=== PATIENT | female | born 1960 | race Caucasian/White ===

== ENCOUNTER → 2016-08-11 | Day surgery (SDC) | payer BC | LOC: MSO 06:56 | DX: D12.3 Benign neoplasm of transverse colon (principal); K92.1 Melena; D12.2 Benign neoplasm of ascending colon; D12.5 Benign neoplasm of sigmoid colon; D12.7 Benign neoplasm of rectosigmoid junction; I10 Essential (primary) hypertension | CPT/HCPCS: 00810; J7030 ==

== ENCOUNTER → 2017-06-12 | Outpatient (CLI) | payer BC | LOC: RAD 16:54 | DX: M17.12 Unilateral primary osteoarthritis, left knee (principal) ==

== ENCOUNTER → 2018-01-12 | Outpatient (CLI) | payer BC ==
[2018-01-12 11:05] LABS: EOS # 0.1 (0.04-0.40); EOS % 0.7 % (1.0-5.0); HEMATOCRIT 41.7 % (37.0-47.0); MEAN CELL VOLUME 89 fl (78-100); MEAN CORPUSCULAR HEMOGLOBIN 30 pg (27-31); MEAN CORPUSCULAR HGB CONC 34 g/dL (33-37); MEAN PLATELET VOLUME 9.6 fl (7.4-10.4); MONO # 0.5 (0.20-0.80); NEU # 4.8 (1.40-6.50); PLATELET COUNT 277 K/mm3 (130-400); RED BLOOD COUNT 4.69 M/mm3 (4.10-5.30); RED CELL DISTRIBUTION WIDTH 13.2 % (11.5-14.5); WHITE BLOOD COUNT 7.4 K/mm3 (4.8-10.8)
[2018-01-12 12:09] LABS: ALBUMIN 4.6 g/dL (3.5-5.0); CALCIUM 10.5 mg/dL (8.4-10.2); POTASSIUM 4.2 mmol/L (3.6-5.0); TOTAL BILIRUBIN 0.7 mg/dL (0.2-1.3); TOTAL PROTEIN 8.5 g/dL (6.3-8.2)
[2018-01-12 12:18] LABS: ERYTHROCYTE SEDIMENTATION RATE 22 mm/hr (0-30); URINE APPEARANCE HAZY; URINE BILIRUBIN NEGATIVE (NEGATIVE); URINE BLOOD NEGATIVE (NEGATIVE); URINE COLOR YELLOW; URINE GLUCOSE NEGATIVE (NEGATIVE); URINE KETONE NEGATIVE (NEGATIVE); URINE LEUKOCYTE ESTERASE 1+ (NEGATIVE); URINE MUCUS PRESENT (NOT PRESENT); URINE NITRATE NEGATIVE (NEGATIVE); URINE PROTEIN(semi-quant) NEGATIVE (NEGATIVE); URINE UROBILINOGEN NORMAL (NORMAL)
[2018-01-12 23:18] LABS: CREATININE OTHER SOURCE 49 mg/dL (())
== END ==
LOC: RAD 10:42
PROVIDERS: Internal Medicine
DX: M17.11 Unilateral primary osteoarthritis, right knee (principal)

== ENCOUNTER → 2018-01-15 | Outpatient (CLI) | payer BC | LOC: LAB 17:41 | DX: Z00.00 Encounter for general adult medical examination without abnormal findings (principal) ==

== ENCOUNTER → 2018-03-16 | Outpatient (CLI) | payer BC | LOC: MAMMO 12:50 | DX: Z12.31 Encounter for screening mammogram for malignant neoplasm of breast (principal) ==

== ENCOUNTER → 2018-11-11 | Outpatient (CLI) | payer BC | LOC: RAD 08:08 | DX: M17.0 Bilateral primary osteoarthritis of knee (principal); M25.461 Effusion, right knee ==

== ENCOUNTER → 2018-12-13 | Outpatient (CLI) | payer BC ==
[~2018-12-13] MED LIST: ASPIR LOW81 MG PO; BYSTOLIC5 MG PO; GLUCOSAMINE CH1 EAC5 PO; ONE DAILY WOME1 EACH PO; ULTRAM50 M1 PO
== END ==
LOC: PT 14:45
DX: M17.0 Bilateral primary osteoarthritis of knee (principal)

== ENCOUNTER 2019-02-17 13:00 | Outpatient (RCR) | payer BC ==
[2018-12-16 12:21] VITALS: BP 156/84
== END 2019-03-31 | disposition still patient (30) ==
LOC: PT
DX: M17.12 Unilateral primary osteoarthritis, left knee (principal); Z98.890 Other specified postprocedural states

== ENCOUNTER → 2019-10-28 | Outpatient (CLI) | payer BC ==
[2018-12-16 12:21] VITALS: BP 156/84
[2019-10-28 11:55] LABS: POTASSIUM 4.4 mmol/L (3.5-5.1)
[2019-10-28 11:56] LABS: ALBUMIN 4.5 g/dL (3.5-5.0); EOS # 0.1 (0.04-0.40); EOS % 0.8 % (1.0-5.0); HEMATOCRIT 41.6 % (37.0-47.0); HEMOGLOBIN 13.6 g/dL (12.5-16.0); LYMPH# 1.9 (1.50-4.00); MEAN CELL VOLUME 90 fl (78-100); MEAN CORPUSCULAR HEMOGLOBIN 29 pg (27-31); MEAN CORPUSCULAR HGB CONC 33 g/dL (33-37); MEAN PLATELET VOLUME 9.4 fl (7.4-10.4); MONO # 0.6 (0.20-0.80); PLATELET COUNT 279 K/mm3 (130-400); RED BLOOD COUNT 4.63 M/mm3 (4.10-5.30); WHITE BLOOD COUNT 7.5 K/mm3 (4.8-10.8)
[2019-10-28 11:57] LABS: CALCIUM 9.7 mg/dL (8.3-10.5)
[2019-10-28 11:58] LABS: TOTAL PROTEIN 7.8 g/dL (6.4-8.3)
[2019-10-28 12:00] LABS: TOTAL BILIRUBIN 0.6 mg/dL (0.2-1.2)
[2019-10-28 12:05] LABS: MAGNESIUM 2.09 mg/dL (1.60-2.60)
[2019-10-28 12:21] LABS: URINE APPEARANCE HAZY; URINE BILIRUBIN NEGATIVE (NEGATIVE); URINE BLOOD TRACE (NEGATIVE); URINE COLOR YELLOW; URINE GLUCOSE NEGATIVE (NEGATIVE); URINE KETONE 1+ (NEGATIVE); URINE LEUKOCYTE ESTERASE NEGATIVE (NEGATIVE); URINE NITRATE NEGATIVE (NEGATIVE); URINE PROTEIN(semi-quant) TRACE mg/dL (NEGATIVE); URINE UROBILINOGEN NORMAL (NORMAL)
== END ==
LOC: LAB 10:45 → AMSURD 10:45 → RAD 10:45
PROVIDERS: Internal Medicine
DX: Z01.811 Encounter for preprocedural respiratory examination (principal)

== ENCOUNTER → 2020-05-01 | Outpatient (CLI) | payer BC ==
[2018-12-16 12:21] VITALS: BP 156/84
== END ==
LOC: LAB 13:04
DX: U07.1 COVID-19 (principal)

== ENCOUNTER → 2021-03-18 | Outpatient (CLI) | payer BC | LOC: LAB 10:15 | DX: U07.1 COVID-19 (principal) ==

== ENCOUNTER → 2021-08-19 | Outpatient (CLI) | payer BC ==
[2021-08-19 17:53] LABS: BASO # 0.01 K/mm3 (0.02-0.10); EOS # 0.05 K/mm3 (0.04-0.40); EOS % 0.6 % (1.0-5.0); HEMATOCRIT 40.2 % (37.0-47.0); HEMOGLOBIN 13.2 g/dL (12.5-16.0); MEAN CELL VOLUME 92 fl (78-100); MEAN CORPUSCULAR HEMOGLOBIN 30 pg (27-31); MEAN CORPUSCULAR HGB CONC 33 g/dL (33-37); MEAN PLATELET VOLUME 9.4 fl (7.4-10.4); MONO # 0.63 K/mm3 (0.20-0.80); NEU # 5.43 K/mm3 (1.40-6.50); PLATELET COUNT 253 K/mm3 (130-400); RED BLOOD COUNT 4.36 M/mm3 (4.10-5.30); RED CELL DISTRIBUTION WIDTH 12.6 % (11.5-14.5); WHITE BLOOD COUNT 8.6 K/mm3 (4.8-10.8)
[2021-08-19 18:01] LABS: POTASSIUM 4.1 mmol/L (3.5-5.1)
[2021-08-19 18:02] LABS: ALBUMIN 4.4 g/dL (3.5-5.0)
[2021-08-19 18:03] LABS: CALCIUM 10.4 mg/dL (8.3-10.5)
[2021-08-19 18:04] LABS: TOTAL PROTEIN 7.8 g/dL (6.4-8.3)
[2021-08-19 18:06] LABS: TOTAL BILIRUBIN 0.4 mg/dL (0.2-1.2)
== END ==
LOC: LAB 17:38
PROVIDERS: Family Medicine
DX: Z00.00 Encounter for general adult medical examination without abnormal findings (principal); Z12.31 Encounter for screening mammogram for malignant neoplasm of breast; Z12.11 Encounter for screening for malignant neoplasm of colon; I10 Essential (primary) hypertension; E78.2 Mixed hyperlipidemia; E66.9 Obesity, unspecified; M17.0 Bilateral primary osteoarthritis of knee; M79.644 Pain in right finger(s); B37.2 Candidiasis of skin and nail; R73.03 Prediabetes

== ENCOUNTER → 2021-10-04 | Outpatient (CLI) | payer BC | LOC: MAMMO 07:15 → RAD 07:15 → MAMMO 07:51 | DX: Z12.31 Encounter for screening mammogram for malignant neoplasm of breast (principal); K76.0 Fatty (change of) liver, not elsewhere classified; R74.8 Abnormal levels of other serum enzymes ==

== ENCOUNTER → 2021-10-04 | Outpatient (CLI) | payer BC ==
[2021-10-04 07:33] LABS: BASO # 0.02 K/mm3 (0.02-0.10); EOS # 0.06 K/mm3 (0.04-0.40); EOS % 1.1 % (1.0-5.0); HEMATOCRIT 41.4 % (37.0-47.0); HEMOGLOBIN 13.4 g/dL (12.5-16.0); LYMPH# 1.99 K/mm3 (1.50-4.00); MEAN CELL VOLUME 94 fl (78-100); MEAN CORPUSCULAR HEMOGLOBIN 30 pg (27-31); MEAN CORPUSCULAR HGB CONC 32 g/dL (33-37); MEAN PLATELET VOLUME 9.4 fl (7.4-10.4); MONO # 0.42 K/mm3 (0.20-0.80); NEU # 3.07 K/mm3 (1.40-6.50); PLATELET COUNT 211 K/mm3 (130-400); RED BLOOD COUNT 4.43 M/mm3 (4.10-5.30); RED CELL DISTRIBUTION WIDTH 12.2 % (11.5-14.5); WHITE BLOOD COUNT 5.6 K/mm3 (4.8-10.8)
[2021-10-04 07:39] LABS: ALBUMIN 4.3 g/dL (3.5-5.0); POTASSIUM 4.4 mmol/L (3.5-5.1)
[2021-10-04 07:40] LABS: CALCIUM 9.9 mg/dL (8.3-10.5)
[2021-10-04 07:42] LABS: TOTAL PROTEIN 7.7 g/dL (6.4-8.3)
[2021-10-04 07:43] LABS: TOTAL BILIRUBIN 0.6 mg/dL (0.2-1.2)
[2021-10-04 23:05] LABS: HEPATITIS C ANTIBODY Negative (Negative)
== END ==
LOC: LAB 07:12
PROVIDERS: Family Medicine
DX: R74.8 Abnormal levels of other serum enzymes (principal); I10 Essential (primary) hypertension; R73.03 Prediabetes; E78.2 Mixed hyperlipidemia

== ENCOUNTER → 2021-10-07 | Day surgery (SDC) | payer BC | LOC: MSO 07:53 → RAD 12:00 → MSO 12:04 | DX: D12.2 Benign neoplasm of ascending colon (principal) | CPT/HCPCS: 00811; J2704; J7120 ==

== ENCOUNTER → 2022-12-22 | Outpatient (CLI) | payer BC ==
[2022-12-22 13:38] LABS: BASO # 0.01 K/mm3 (0.02-0.10); EOS # 0.06 K/mm3 (0.04-0.40); EOS % 0.9 % (1.0-5.0); HEMOGLOBIN 13.3 g/dL (12.5-16.0); MEAN CELL VOLUME 94 fl (78-100); MEAN CORPUSCULAR HEMOGLOBIN 30 pg (27-31); MEAN CORPUSCULAR HGB CONC 32 g/dL (33-37); MEAN PLATELET VOLUME 9.1 fl (7.4-10.4); MONO # 0.43 K/mm3 (0.20-0.80); NEU # 3.97 K/mm3 (1.40-6.50); PLATELET COUNT 241 K/mm3 (130-400); RED BLOOD COUNT 4.37 M/mm3 (4.10-5.30); RED CELL DISTRIBUTION WIDTH 12.1 % (11.5-14.5); WHITE BLOOD COUNT 6.9 K/mm3 (4.8-10.8)
[2022-12-22 13:46] LABS: ALBUMIN 4.4 g/dL (3.5-5.0); POTASSIUM 4.4 mmol/L (3.5-5.1)
[2022-12-22 13:47] LABS: CALCIUM 9.9 mg/dL (8.3-10.5)
[2022-12-22 13:49] LABS: TOTAL PROTEIN 7.5 g/dL (6.4-8.3)
[2022-12-22 13:50] LABS: TOTAL BILIRUBIN 0.4 mg/dL (0.2-1.2)
== END ==
LOC: LAB 13:19
PROVIDERS: Family Medicine
DX: Z00.00 Encounter for general adult medical examination without abnormal findings (principal); Z12.39 Encounter for other screening for malignant neoplasm of breast; I10 Essential (primary) hypertension; E78.2 Mixed hyperlipidemia; E66.9 Obesity, unspecified; M17.0 Bilateral primary osteoarthritis of knee; E78.5 Hyperlipidemia, unspecified; L91.8 Other hypertrophic disorders of the skin; M19.011 Primary osteoarthritis, right shoulder; B35.1 Tinea unguium; H61.23 Impacted cerumen, bilateral

== ENCOUNTER → 2023-09-08 | Outpatient (CLI) | payer BC ==
[2023-09-08 07:12] LABS: URINE WBC 0 /hpf (0-3)
[2023-09-08 07:20] LABS: BASO # 0.01 K/mm3 (0.02-0.10); EOS # 0.09 K/mm3 (0.04-0.40); EOS % 1.5 % (1.0-5.0); HEMATOCRIT 40.1 % (37.0-47.0); HEMOGLOBIN 12.9 g/dL (12.5-16.0); MEAN CELL VOLUME 94 fl (78-100); MEAN CORPUSCULAR HEMOGLOBIN 30 pg (27-31); MEAN CORPUSCULAR HGB CONC 32 g/dL (33-37); MEAN PLATELET VOLUME 9.1 fl (7.4-10.4); MONO # 0.44 K/mm3 (0.20-0.80); NEU # 2.98 K/mm3 (1.40-6.50); PLATELET COUNT 218 K/mm3 (130-400); RED BLOOD COUNT 4.27 M/mm3 (4.10-5.30); RED CELL DISTRIBUTION WIDTH 12.3 % (11.5-14.5); WHITE BLOOD COUNT 5.9 K/mm3 (4.8-10.8)
[2023-09-08 07:29] LABS: ALBUMIN 4.2 g/dL (3.5-5.0)
[2023-09-08 07:30] LABS: CALCIUM 9.7 mg/dL (8.3-10.5)
[2023-09-08 07:31] LABS: TOTAL PROTEIN 7.1 g/dL (6.4-8.3)
[2023-09-08 07:33] LABS: TOTAL BILIRUBIN 0.5 mg/dL (0.2-1.2)
[2023-09-08 07:55] LABS: URINE APPEARANCE CLEAR (CLEAR); URINE COLOR YELLOW (YELLOW)
[2023-09-08 07:56] LABS: PH-URINE 5.5 (5.0 - 8.0); URINE BILIRUBIN NEGATIVE (NEGATIVE); URINE BLOOD TRACE (NEGATIVE); URINE GLUCOSE NEGATIVE (NEGATIVE); URINE KETONE NEGATIVE (NEGATIVE); URINE LEUKOCYTE ESTERASE NEGATIVE (NEGATIVE); URINE MUCUS PRESENT (NOT PRESENT); URINE NITRATE NEGATIVE (NEGATIVE); URINE PROTEIN(semi-quant) NEGATIVE (NEGATIVE)
[2023-09-08 08:07] LABS: PROTHROMBIN TIME 9.9 SECONDS (9.0-12.0)
== END ==
LOC: LAB 07:07 → RAD 07:07
PROVIDERS: Family Medicine
DX: Z01.89 Encounter for other specified special examinations (principal); R73.03 Prediabetes

== ENCOUNTER 2023-12-09 08:00 | Outpatient (RCR) | payer BC | END 2024-01-07 | disposition home or self-care (01) | LOC: PT | DX: M19.011 Primary osteoarthritis, right shoulder (principal); M24.9 Joint derangement, unspecified; Z96.611 Presence of right artificial shoulder joint ==

== ENCOUNTER → 2024-04-21 | Outpatient (REF) | payer BC | LOC: LAB 11:00 | DX: J02.9 Acute pharyngitis, unspecified (principal) ==

== ENCOUNTER → 2024-05-03 | Outpatient (CLI) | payer BC ==
[2024-05-03 15:22] LABS: BASO # 0.03 K/mm3 (0.02-0.10); EOS # 0.05 K/mm3 (0.04-0.40); EOS % 0.7 % (1.0-5.0); HEMATOCRIT 41.2 % (37.0-47.0); HEMOGLOBIN 13.4 g/dL (12.5-16.0); LYMPH# 2.29 K/mm3 (1.50-4.00); MEAN CELL VOLUME 92 fl (78-100); MEAN CORPUSCULAR HEMOGLOBIN 30 pg (27-31); MEAN CORPUSCULAR HGB CONC 33 g/dL (33-37); MEAN PLATELET VOLUME 9.4 fl (7.4-10.4); MONO # 0.52 K/mm3 (0.20-0.80); NEU # 4.64 K/mm3 (1.40-6.50); PLATELET COUNT 261 K/mm3 (130-400); RED CELL DISTRIBUTION WIDTH 12.4 % (11.5-14.5); WHITE BLOOD COUNT 7.5 K/mm3 (4.8-10.8)
[2024-05-03 15:24] LABS: ALBUMIN 4.4 g/dL (3.4-4.8)
[2024-05-03 15:25] LABS: CALCIUM 10.4 mg/dL (8.3-10.5)
[2024-05-03 15:26] LABS: TOTAL PROTEIN 8.4 g/dL (6.2-8.1)
[2024-05-03 15:28] LABS: TOTAL BILIRUBIN 0.4 mg/dL (0.2-1.2)
== END ==
LOC: LAB 14:52
PROVIDERS: Family Medicine
DX: I10 Essential (primary) hypertension (principal); E78.5 Hyperlipidemia, unspecified; E55.9 Vitamin D deficiency, unspecified; R73.03 Prediabetes